=== PATIENT | female | born 1995 | race Caucasian/White ===

== ENCOUNTER 2017-02-05 00:50 | Emergency (ER) | payer BC ==
[2017-02-05] MEDS ORDERED: Mag-Al Plus 1200 MG/1200 MG/120 MG/30 ML UDCUP ONE (01:08)
[2017-02-05] MEDS ORDERED: Lidocaine Viscous Sol 2% 15 ml UD Cup ONE (01:08)
== END 2017-02-05 01:56 | disposition home or self-care (01) ==
LOC: SCSER 00:50
DX: R13.10 Dysphagia, unspecified (principal); F41.9 Anxiety disorder, unspecified; F90.9 Attention-deficit hyperactivity disorder, unspecified type; I49.9 Cardiac arrhythmia, unspecified; Z79.899 Other long term (current) drug therapy
CPT/HCPCS: 99282